=== PATIENT | female | born 1990 | race Caucasian/White ===

== ENCOUNTER 2025-06-25 11:11 | Emergency (ER) | payer SELFPAY ==
[~2025-06-25] VITALS: Ht 165.1 cm; Wt 65.0 kg
[2025-06-25 11:42] VITALS: O2SAT 100
[2025-06-25 12:41] LABS: BASOPHILS % 0.7 % (0.0-2.0); EOSINOPHILS % 0.8 % (0.0-5.0); HEMATOCRIT. 31.0 % (36.0-48.0); HEMOGLOBIN. 9.7 g/dL (12.0-16.0); LYMPHOCYTES % 14.3 % (20.0-50.0); MEAN PLATELET VOLUME 8.3 fl (7.4-10.4); MONOCYTES % 5.9 % (2.0-8.0); NEUTROPHILS % 78.3 % (40.0-76.0); PLATELET 326 x1000/uL (130-400); RED BLOOD CELL COUNT 4.40 mill/uL (4.2-5.4); RED CELL DISTRIBUTION WIDTH 20.4 % (11.6-14.6)
[2025-06-25 12:56] LABS: CREATININE 0.7 mg/dL (0.6-1.0)
[2025-06-25 12:57] LABS: UREA NITROGEN BLOOD 15 mg/dL (9-23)
[2025-06-25 12:58] LABS: ASPARTATE AMINOTRANSFERASE 16 IU/L (<34)
[2025-06-25 12:59] LABS: BILIRUBIN DIRECT 0.1 mg/dL (<=3.0); BILIRUBIN TOTAL 0.5 mg/dL (0.1-1.0); PROTEIN TOTAL 7.2 g/dL (6.0-8.3)
[2025-06-25 13:01] LABS: HCG SCREEN NEGATIVE
[2025-06-25] MEDS: ONDANSETRON HCL 4MG/2ML INJ IV ONE (13:07)
[2025-06-25] MEDS: MORPHINE SULFATE 4 MG/ML INJ (FOR IV/IM USE) IV ONE (13:08)
[2025-06-25 16:29] LABS: COLOR URINE RED (YELLOW)
[2025-06-25 16:30] LABS: CLARITY URINE TURBID (CLEAR); GLUCOSE URINE NEGATIVE (NEGATIVE); PH URINE 5.5 (4.5-8.0); PROTEIN URINE 4+ (NEGATIVE); SPECIFIC GRAVITY URINE 1.025 (1.005-1.030)
[2025-06-25 16:31] LABS: KETONES URINE 2+ (NEGATIVE); LEUKOCYTE ESTERASE URINE 2+ (NEGATIVE); NITRITE URINE POSITIVE (NEGATIVE); OCCULT BLOOD URINE 3+ (NEGATIVE); UROBILINOGEN URINE 2.0 E.U./dL (0.2-1.0)
[2025-06-25 16:33] LABS: BACTERIA URINE 1+; MUCUS URINE 1+ /lpf (< = 2+); RBC URINE TNTC /hpf (0-2); SQUAMOUS EPITHELIAL CELL URINE 1+ /lpf (RARE/1+)
[2025-06-25] MEDS ORDERED: HYDR-4001 MT (16:45)
[2025-06-25] MEDS ORDERED: IBUP-2029 MT (16:45)
[2025-06-25] MEDS ORDERED: NITR100C MT (16:45)
[2025-06-25 17:36] VITALS: BP 106/63; PULSE 68; RESP 18; TEMP 37; O2SAT 100
== END 2025-06-25 17:37 | disposition home or self-care (01) ==
LOC: ER 11:11 → CANBEDREQ 14:31 → ER 17:37
DX: N20.0 Calculus of kidney (principal); N39.0 Urinary tract infection, site not specified; D64.9 Anemia, unspecified; Z98.890 Other specified postprocedural states; Z79.899 Other long term (current) drug therapy
CPT/HCPCS: 80076; 80048; 81003; 84703; 83690; 85025; 36415; 74176; 76705; 96374; 96375; 99285; J2405; J2270; Z7610 ×3